=== PATIENT | male | born 1990 | race Caucasian/White ===

== ENCOUNTER 2023-12-10 13:03 | Day surgery (SDC) | payer BC ==
[2023-12-10] MEDS ORDERED: Decadron 4 MG INJ IV ONE (13:04)
[2023-12-10] MEDS ORDERED: Sodium Chloride 0.9(Preservative Free) 10 ML IJ ONE (13:04)
[2023-12-10] MEDS ORDERED: DIPRIVAN 200 MG/20 ML IV ONE (14:12)
[2023-12-10] MEDS ORDERED: Versed 2 MG/2 ML Injection ONE (14:13)
[2023-12-10] MEDS ORDERED: Lactated Ringers 1,000 ML IV ONE (14:36)
--- NOTE | 2023-12-10 14:50 | XRAY ---
Indication: Right L2-L4 transforaminal LOLA. Intraoperative fluoroscopy provided for 30 seconds. 4 digital spot image submitted for interpretation demonstrates posterior needle tips projecting over the expected right L2 and L3 nerve roots. Small amount of contrast injected for needle tip placement. Correlate with intraoperative findings/report.
--- NOTE | 2023-12-10 15:10 | XRAY ---
30 seconds of fluoroscopy was used in surgery for a right L2-L4 transforaminal LOLA.
== END 2023-12-10 14:43 | disposition home or self-care (01) ==
LOC: SDC-PAIN 13:03
PROVIDERS: ATTEND Psychiatry & Neurology Pain Medicine
DX: M54.16 Radiculopathy, lumbar region (principal)
CPT/HCPCS: 64483; 64484; 72100; 77003; J1100; J2250; J2704

== ENCOUNTER → 2024-01-13 | Day surgery (SDC) | payer BC ==
[~2024-01-13] MED LIST: DIPRIVAN 200 MG/20 ML IV ONE; Decadron 4 MG INJ IV ONE; Lactated Ringers 1,000 ML IV ONE; Sodium Chloride 0.9(Preservative Free) 10 ML IJ ONE
--- NOTE | 2024-01-13 16:42 | XRAY ---
Indication: Left L2-L4 transforaminal LOLA. Intraoperative fluoroscopy provided for 24 seconds. 5 digital spot image submitted for interpretation demonstrates posterior needle tips projecting over the expected left L2 and L3 nerve roots. Small amount of contrast injected for needle tip placement. Correlate with intraoperative findings/report.
--- NOTE | 2024-01-13 16:46 | XRAY ---
24 seconds of fluoroscopy was used in surgery for a left L2-L4 transforaminal LOLA.
== END ==
LOC: SDC-PAIN 11:32
PROVIDERS: ATTEND Psychiatry & Neurology Pain Medicine
DX: M54.16 Radiculopathy, lumbar region (principal)
CPT/HCPCS: 64483; 64484; 72100; 77003; J1100; J2704; Q9966

== ENCOUNTER 2024-05-11 15:46 | Day surgery (SDC) | payer BC ==
[2024-05-11] MEDS ORDERED: DIPRIVAN 200 MG/20 ML IV ONE ×2 (17:56→17:59)
[2024-05-11] MEDS ORDERED: Lactated Ringers 1,000 ML IV ONE (17:58)
--- NOTE | 2024-05-11 20:19 | XRAY ---
Indication: Bilateral L4-S1 MBB. Intraoperative fluoroscopy provided for 11 seconds. Single digital spot image submitted for interpretation demonstrates posterior needle tips projecting over the expected left and right L4-S1 nerve roots. Correlate with intraoperative findings/report.
--- NOTE | 2024-05-12 09:12 | XRAY ---
11 seconds of fluoroscopy was used in surgery for a bilateral L4-S1 MBB.
== END 2024-05-11 18:20 | disposition home or self-care (01) ==
LOC: SDC-PAIN 15:46
PROVIDERS: ATTEND Psychiatry & Neurology Pain Medicine
DX: M47.816 Spondylosis without myelopathy or radiculopathy, lumbar region (principal)
CPT/HCPCS: 64493; 64494; 72020; 77002; J2704

== ENCOUNTER 2024-06-08 15:19 | Day surgery (SDC) | payer BC ==
[2024-06-08] MEDS ORDERED: BUPIVACAINE 0.5% VIAL IJ ONE (15:20)
[2024-06-08] MEDS ORDERED: Lactated Ringers 1,000 ML IV ONE (16:31)
[2024-06-08] MEDS ORDERED: DIPRIVAN 200 MG/20 ML IV ONE ×2 (16:34→16:40)
--- NOTE | 2024-06-08 19:15 | XRAY ---
Indication: Bilateral L4-S1 MBB. Intraoperative fluoroscopy provided for 8 seconds. Single digital spot image submitted for interpretation demonstrates posterior needle tips projecting over the expected left and right L4-S1 nerve roots. Correlate with intraoperative findings/report.
--- NOTE | 2024-06-09 08:52 | XRAY ---
8 seconds of fluoroscopy was used in surgery for a bilateral L4-S1 MBB.
== END 2024-06-08 17:00 | disposition home or self-care (01) ==
LOC: SDC-PAIN 15:19
PROVIDERS: ATTEND Psychiatry & Neurology Pain Medicine
DX: M47.816 Spondylosis without myelopathy or radiculopathy, lumbar region (principal)
CPT/HCPCS: 64493; 64494; 72020; 77002; J2704

== ENCOUNTER 2024-07-06 15:14 | Day surgery (SDC) | payer BC ==
[2024-07-06] MEDS ORDERED: Depo-Medrol 40 MG/ML IM ONE (15:15)
[2024-07-06] MEDS ORDERED: LIDOCAINE HCL 1% 50 MG/5 ML VL PF IJ ONE (15:15)
[2024-07-06] MEDS ORDERED: BUPIVACAINE 0.5% VIAL IJ ONE (15:15)
[2024-07-06] MEDS ORDERED: Lactated Ringers 1,000 ML IV ONE (16:12)
[2024-07-06] MEDS ORDERED: DIPRIVAN 200 MG/20 ML IV ONE ×2 (16:18→16:24)
--- NOTE | 2024-07-06 17:40 | XRAY ---
Indication: Left L4-S1 RFA. Intraoperative fluoroscopy provided for 20 seconds. 3 digital spot image submitted for interpretation demonstrates posterior needle tips projecting over the expected left L4-S1 nerve roots. Correlate with intraoperative findings/report.
--- NOTE | 2024-07-06 17:44 | XRAY ---
20 seconds of fluoroscopy was used in surgery for a left L4-S1 RFA.
== END 2024-07-06 16:50 | disposition home or self-care (01) ==
LOC: SDC-PAIN 15:14
PROVIDERS: ATTEND Psychiatry & Neurology Pain Medicine
DX: M47.816 Spondylosis without myelopathy or radiculopathy, lumbar region (principal)
CPT/HCPCS: 64635; 64636; 72100; 77002; J2001; J2704

== ENCOUNTER 2024-07-13 15:14 | Day surgery (SDC) | payer BC ==
[2024-07-13] MEDS ORDERED: LIDOCAINE HCL 1% 50 MG/5 ML VL PF IJ ONE (15:15)
[2024-07-13] MEDS ORDERED: Depo-Medrol 40 MG/ML IM ONE (15:15)
[2024-07-13] MEDS ORDERED: BUPIVACAINE 0.5% VIAL IJ ONE (15:15)
[2024-07-13] MEDS ORDERED: DIPRIVAN 200 MG/20 ML IV ONE (16:00)
--- NOTE | 2024-07-13 16:47 | XRAY ---
Indication: Right L4-S1 RFA. Intraoperative fluoroscopy provided for 17 seconds. 5 digital spot images submitted for interpretation demonstrates posterior needle tips projecting over the expected right L4-S1 nerve roots. Correlate with intraoperative findings/report.
[2024-07-13] MEDS ORDERED: Lactated Ringers 1,000 ML IV ONE (17:04)
--- NOTE | 2024-07-13 17:09 | XRAY ---
17 seconds of fluoroscopy was used in surgery for a right L4-S1 RFA.
== END 2024-07-13 16:32 | disposition home or self-care (01) ==
LOC: SDC-PAIN 15:14
PROVIDERS: ATTEND Psychiatry & Neurology Pain Medicine
DX: M47.816 Spondylosis without myelopathy or radiculopathy, lumbar region (principal); M47.817 Spondylosis without myelopathy or radiculopathy, lumbosacral region
CPT/HCPCS: 64635; 64636; 72100; 77002; J2001; J2704

== ENCOUNTER 2024-12-28 15:05 | Day surgery (SDC) | payer BC ==
[2024-12-28] MEDS ORDERED: LIDOCAINE HCL 1% 50 MG/5 ML VL IJ ONE (15:06)
[2024-12-28] MEDS ORDERED: dexAMETHasone sodium phosphate IJ ONE (15:06)
[2024-12-28] MEDS ORDERED: methylPREDNISolone acetate IM ONE (15:06)
[2024-12-28] MEDS ORDERED: propofoL IV ONE ×2 (16:02→16:06)
--- NOTE | 2024-12-28 17:26 | XRAY ---
Indication: Left piriformis injection. Intraoperative fluoroscopy provided for 7 seconds. Single digital spot images submitted for interpretation demonstrates posterior needle tip projecting over left piriformis. Small amount of contrast injected for needle tip placement. Correlate with intraoperative findings/report.
--- NOTE | 2024-12-28 21:43 | XRAY ---
7 seconds of fluoroscopy were used in surgery for a left piriformis injection.
== END 2024-12-28 16:32 | disposition home or self-care (01) ==
LOC: SDC-PAIN 15:05
PROVIDERS: ATTEND Psychiatry & Neurology Pain Medicine
DX: M79.18 Myalgia, other site (principal)
CPT/HCPCS: 20553; 72170; 77002; J1010; J1100; J2704; Q9966

== ENCOUNTER 2025-03-01 13:52 | Day surgery (SDC) | payer BC ==
[2025-03-01] MEDS ORDERED: LIDOCAINE HCL 1% AMPUL 5 ML IJ ONE (13:53)
[2025-03-01] MEDS ORDERED: Lactated Ringers IV ONE (13:53)
[2025-03-01] MEDS ORDERED: dexAMETHasone sodium phosphate IJ ONE (13:53)
[2025-03-01] MEDS ORDERED: propofoL IV ONE (16:02)
--- NOTE | 2025-03-01 16:44 | XRAY ---
Indication: Left piriformis injection. Intraoperative fluoroscopy provided for 12 seconds. Single digital spot image submitted for interpretation demonstrates posterior needle tip projecting over left piriformis. Small amount of contrast injected for needle tip placement. Correlate with intraoperative findings/report.
--- NOTE | 2025-03-02 09:36 | XRAY ---
12 seconds of fluoroscopy was used in surgery for a left piriformis injection.
== END 2025-03-01 16:38 | disposition home or self-care (01) ==
LOC: SDC-PAIN 13:52
PROVIDERS: ATTEND Psychiatry & Neurology Pain Medicine
DX: M79.18 Myalgia, other site (principal)
CPT/HCPCS: 20553; 72170; 77002; J1100; J2704; Q9966

== ENCOUNTER 2025-09-06 14:04 | Day surgery (SDC) | payer BC ==
[2025-09-06] MEDS ORDERED: BUPIVACAINE 0.5% VIAL IJ ONE (14:05)
[2025-09-06] MEDS ORDERED: methylPREDNISolone acetate IM ONE (14:05)
[2025-09-06] MEDS ORDERED: LIDOCAINE HCL 1% 50 MG/5 ML VL IJ ONE (14:05)
[2025-09-06] MEDS ORDERED: propofoL IV ONE ×2 (17:01→17:09)
[2025-09-06] MEDS ORDERED: Lactated Ringers 1,000 ML IV ONE (18:15)
--- NOTE | 2025-09-07 08:38 | XRAY ---
Indication: Left L4-S1 RFA. Intraoperative fluoroscopy provided for 17 seconds. 5 digital spot images submitted for interpretation demonstrates posterior needle tips projecting over expected left L4-S1 nerve roots. Correlate with intraoperative findings/report.
--- NOTE | 2025-09-07 09:35 | XRAY ---
17 seconds of fluoroscopy was used in surgery for a left L4-S1 RFA.
== END 2025-09-06 17:35 | disposition home or self-care (01) ==
LOC: SDC-PAIN 14:04
PROVIDERS: ATTEND Psychiatry & Neurology Pain Medicine
DX: M47.817 Spondylosis without myelopathy or radiculopathy, lumbosacral region (principal)

== ENCOUNTER 2025-09-20 12:28 | Day surgery (SDC) | payer BC ==
[2025-09-20] MEDS ORDERED: methylPREDNISolone acetate IM ONE (12:29)
[2025-09-20] MEDS ORDERED: LIDOCAINE HCL 1% 50 MG/5 ML VL IJ ONE (12:29)
[2025-09-20] MEDS ORDERED: BUPIVACAINE 0.5% VIAL IJ ONE (12:29)
[2025-09-20] MEDS ORDERED: propofoL IV ONE ×2 (14:44→14:57)
[2025-09-20] MEDS ORDERED: Lactated Ringers 1,000 ML IV ONE (15:29)
--- NOTE | 2025-09-20 16:47 | XRAY ---
Indication: Right L4-S1 RFA. Intraoperative fluoroscopy provided for 11 seconds. 3 digital spot image submitted for interpretation demonstrates posterior needle tips projecting over expected right L4-S1 nerve roots. Correlate with intraoperative findings/report.
--- NOTE | 2025-09-20 16:49 | XRAY ---
11 seconds of fluoroscopy was used in surgery for a right L4-S1 RFA.
== END 2025-09-20 15:25 | disposition home or self-care (01) ==
LOC: SDC-PAIN 12:28
PROVIDERS: ATTEND Psychiatry & Neurology Pain Medicine
DX: M47.817 Spondylosis without myelopathy or radiculopathy, lumbosacral region (principal)

== ENCOUNTER 2025-10-12 12:01 | Day surgery (SDC) | payer BC ==
[2025-10-12] MEDS ORDERED: methylPREDNISolone acetate IM ONE (12:02)
[2025-10-12] MEDS ORDERED: BUPIVACAINE 0.5% VIAL IJ ONE (12:02)
[2025-10-12] MEDS ORDERED: LIDOCAINE HCL 1% 50 MG/5 ML VL IJ ONE (12:02)
[2025-10-12] MEDS ORDERED: propofoL IV ONE (14:01)
[2025-10-12] MEDS ORDERED: Versed 2 MG/2 ML Injection ONE (14:02)
[2025-10-12] MEDS ORDERED: Lactated Ringers 1,000 ML IV ONE (15:18)
--- NOTE | 2025-10-12 16:40 | XRAY ---
Indication: Right hip and piriformis injection. Intraoperative fluoroscopy provided for 22 seconds. 2 digital spot image obtained prone submitted for interpretation demonstrates posterior needle tip projecting over right piriformis. 2nd needle tip lateral to right femur neck. Small amount of contrast injected for both needle tip placement. Correlate with intraoperative findings/report.
--- NOTE | 2025-10-12 16:43 | XRAY ---
22 seconds of fluoroscopy was used in surgery for a right intra-articular hip and piriformis injection.
== END 2025-10-12 14:31 | disposition home or self-care (01) ==
LOC: SDC-PAIN 12:01
PROVIDERS: ATTEND Psychiatry & Neurology Pain Medicine
DX: M16.11 Unilateral primary osteoarthritis, right hip (principal); M79.18 Myalgia, other site